=== PATIENT | male | born 1995 | race Two or more races ===

== ENCOUNTER 2016-07-24 14:41 | Emergency (ER) | payer OTHER ==
--- NOTE | 2016-07-24 14:54 | CPEKG ---
Heart Rate: 134 RR Interval: 448 P-R Interval: 148 QRSD Interval: 110 QT Interval: 288 QTC Interval: 430 P [place]: 77 QRS [place]: 57 T Wave [place]: 72 EKG Severity - ABNORMAL ECG - EKG Impression: SINUS TACHYCARDIA EKG Impression: ATRIAL PREMATURE COMPLEX EKG Impression: INCOMPLETE RIGHT BUNDLE BRANCH BLOCK EKG Impression: INFERIOR Q WAVES, PROBABLY NORMAL VARIATION Electronically Signed By: Pta Kiser 24-Jul-2016 16:36:22
[2016-07-24] MEDS ORDERED: NS 1,000 ML IV ONE ×3 (15:07→15:15)
[2016-07-24] MEDS ORDERED: CIPROFLOXACIN 400 MG/DEXTROSE 200 ML IV ONE (15:15)
[2016-07-24] MEDS ORDERED: HYDROmorphONE/DILAUDID 1 MG/ML SYR IVP ONE (15:15)
[2016-07-24] MEDS ORDERED: ONDANSETRON 4 MG/2 ML VIAL IVP ONE (15:15)
--- NOTE | 2016-07-24 15:20 | EDPHY ---
H & P Time Seen by Provider: 07/24/16 15:02 HPI/ROS: HPI Diarrhea, fast heart rate. 21-year-old male by private vehicle with his mother. Patient was down in [place] last week. He reports he returned on Monday. He reports Monday evening he developed watery diarrhea. He had 1 episode of vomiting, described as nonbilious and nonbloody that night. The diarrhea has continued through the week. He describes this as having multiple episodes of watery diarrhea. No bloody or melenic stool. He has taken Imodium twice which helps a bit but the diarrhea then returns. He went to his primary care physician's office to be evaluated was told to come to the emergency department because of his elevated heart rate. He has had no abdominal pain. No further nausea or vomiting. ROS: Constitutional: No fever, no chills. No weakness. Eyes: No discharge. No changes in vision. ENT: No sore throat. No nasal congestion or rhinorrhea. Respiratory: No cough. No shortness of breath. Cardiac: No chest pain, no palpitations. Gastrointestinal: As above, no vomiting. Genitourinary: No hematuria. No dysuria or increased frequency with urination. Musculoskeletal: No back pain. No neck pain. No myalgias or arthralgias. Skin: No rashes. Neurological: No headache. No focal weakness or altered sensation. Past medical history: No significant past medical history. No prescription medications. No allergies to medications. Social history: Nonsmoker. Drinks alcohol occasionally. Denies IV drugs or street drugs. He is here with his mother. Physical Exam: General Appearance: Alert, no distress. Thin, marfanoid in appearance. This patient is responding to questions appropriately and in full sentences. This patient appears well-hydrated and well-nourished. Eyes: Pupils equal and round no pallor or injection. No lid edema, erythema or injection. ENT, Mouth: Mucous membranes are dry. The pharyngeal tissues are unremarkable. No edema or swelling. No asymmetry suggestive of abscess. No erythema or exudates. Respiratory: There are no retractions, lungs are clear to auscultation with good air movement bilaterally. No tachypnea. Cardiovascular: Regular rate and rhythm. Tachycardia. No murmur appreciated. Gastrointestinal: Abdomen is soft and nontender, no masses, bowel sounds normal. No focal tenderness at McBurney's point. No Hernandez sign. Neurological: Motor sensory function is grossly intact. Cranial nerves are normal. Gait is normal. Skin: Warm and dry, no rashes. Musculoskeletal: Neck is supple and nontender. No CVA tenderness on palpation. Extremities are symmetrical. All joints range without pain or impingement. Psychiatric: No agitation. No depression. Database: EKG: EKG time is 2:53 p.m.; EKG shows a narrow complex sinus tachycardia with a ventricular rate of 134. Incomplete right bundle branch block noted. The OR, QT intervals are within normal limits. There are no ST-T wave changes indicative of ischemic or injury pattern. No evidence of right heart strain. Interpreted by me. Imaging: Chest x-ray AP portable; the cardiac mediastinal silhouette is unremarkable. No evidence of infiltrate or pneumothorax. No acute cardiopulmonary disease process noted. Interpreted by me. Procedures: Emergency department course: IV placed. He was placed on a monitor. EKG was performed and reviewed by myself. Vital signs were reviewed. Patient is afebrile. Patient started on IV normal saline with 2-3 L to be given over the next 2-3 hours. He was given 4 mg of IV Zofran for mild nausea and 0.25 mg of IV hydromorphone to help slow his diarrhea. Given his history of recent travel to [place] in classic presentation of traveler's diarrhea he will be given 400 mg of IV ciprofloxacin as well. Plan is to reassess after IV fluid hydration. Rate control may be considered at that time of tachycardia is not resolving. 4:05 p.m., patient re-evaluated. Resting comfortably at this time. Feeling much better. He has had about 1 and half to 2 L of fluid. Heart rate is coming down. 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 5:00 p.m., patient re-evaluated. No diarrhea in the emergency department. Tachycardia has resolved. 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 Patient feels comfortable going home. I feel he is safe for discharge. I discussed oral hydration with him. He will be prescribed Zofran to be taken as needed for nausea. I will also prescribe him 2 days of additional ciprofloxacin coverage. Follow up with his primary care physician was discussed with him and his mother. All of their questions were answered. He was discharged in good condition. Differential Diagnosis: The differential diagnosis on this patient includes but is not limited to traveler's diarrhea, dehydration. Entero invasive etiology of diarrhea, medication reaction, SVT, atrial flutter, pulmonary embolism unlikely. This represents a partial list of diagnoses considered. These considerations are based on history, physical exam, past history, reassessment and diagnostic testing. Smoking Status: Never smoked Constitutional: Initial Vital Signs Temperature (C) 36.5 C 07/24/16 14:45 Heart Rate 135 H 07/24/16 14:45 Respiratory Rate 20 07/24/16 14:45 Blood Pressure 130/74 H 07/24/16 14:45 O2 Sat (%) 100 07/24/16 14:45 O2 Delivery Mode Room Air Allergies/Adverse Reactions: No Known Allergies Allergy (Unverified 07/24/16 15:05) Home Medications: Medication Instructions Recorded Ciprofloxacin [Cipro] 500 mg PO BID #4 tab 07/24/16 Ondansetron Odt [Zofran Odt 4 mg 4 mg PO Q4PRN PRN #10 tab 07/24/16 (*)] Medical Decision Making - Diagnostics Imaging Results: Imaging Impressions Chest X-Ray 07/24/16 15:07 Impression: Normal PA chest. No acute process. - Data Points Laboratory Results: Laboratory Results 07/24/16 14:54 07/24/16 14:54 07/24/16 07/24/16 14:54 14:54 WBC 9.59 10^3/uL H 10^3/uL (3.80-9.50) RBC 5.80 10^6/uL 10^6/uL (4.40-6.38) Hgb 17.7 g/dL H g/dL (13.7-17.5) Hct 48.9 % % (40.0-51.0) MCV 84.3 fL fL (81.5-99.8) MCH 30.5 pg pg (27.9-34.1) MCHC 36.2 g/dL g/dL (32.4-36.7) RDW 11.9 % % (11.5-15.2) Plt Count 354 10^3/uL 10^3/uL (150-400) MPV 10.2 fL fL (8.7-11.7) Neut % (Auto) 56.3 % % (39.3-74.2) Lymph % (Auto) 33.4 % % (15.0-45.0) [place] % (Auto) 7.4 % % (4.5-13.0) Eos % (Auto) 2.0 % % (0.6-7.6) Baso % (Auto) 0.7 % % (0.3-1.7) Nucleat RBC Rel Count 0.0 % % (0.0-0.2) Absolute Neuts (auto) 5.40 10^3/uL 10^3/uL (1.70-6.50) Absolute Lymphs (auto) 3.20 10^3/uL H 10^3/uL (1.00-3.00) Absolute Monos (auto) 0.71 10^3/uL 10^3/uL (0.30-0.80) Absolute Eos (auto) 0.19 10^3/uL 10^3/uL (0.03-0.40) Absolute Basos (auto) 0.07 10^3/uL 10^3/uL (0.02-0.10) Absolute Nucleated RBC 0.00 10^3/uL 10^3/uL (0-0.01) Immature Gran % 0.2 % % (0.0-1.1) Immature Gran # 0.02 10^3/uL 10^3/uL (0.00-0.10) Sodium 144 mEq/L mEq/L (134-144) Potassium 4.2 mEq/L mEq/L (3.5-5.2) Chloride 102 mEq/L mEq/L (97-110) Carbon Dioxide 21 mEq/l L mEq/l (22-31) Anion Gap 21 mEq/L H mEq/L (8-16) BUN 9 mg/dL mg/dL (7-23) Creatinine 0.8 mg/dL mg/dL (0.7-1.3) Estimated GFR > 60 Glucose 119 mg/dL H mg/dL (70-100) Calcium 10.0 mg/dL mg/dL (8.5-10.4) Total Bilirubin 1.3 mg/dL mg/dL (0.1-1.4) Conjugated Bilirubin 0.4 mg/dL mg/dL (0.0-0.5) Unconjugated Bilirubin 0.9 mg/dL mg/dL (0.0-1.1) AST 34 IU/L IU/L (17-59) ALT 43 IU/L IU/L (21-72) Alkaline Phosphatase 92 IU/L IU/L (38-126) Total Protein 8.7 g/dL H g/dL (6.3-8.2) Albumin 5.1 g/dL H g/dL (3.5-5.0) Lipase 77.0 IU/L IU/L (23-300) Medications Given: Discontinued Medications Hydromorphone HCl (Dilaudid) 0.25 mg IVP EDNOW ONE Stop: 07/24/16 15:16 Last Admin: 07/24/16 15:40 Dose: 0.25 mg Sodium Chloride (Ns) 1,000 mls @ 0 mls/hr IV ONCE ONE PRN Reason: Wide Open Stop: 07/24/16 15:08 Last Admin: 07/24/16 14:54 Dose: 1,000 mls Sodium Chloride (Ns) 1,000 mls @ 0 mls/hr IV ONCE ONE PRN Reason: Wide Open Stop: 07/24/16 15:09 Last Admin: 07/24/16 15:15 Dose: 1,000 mls Ciprofloxacin/Dextrose (Cipro 400 Mg (Premix)) 200 mls @ 200 mls/hr IV EDNOW ONE PRN Reason: Protocol Stop: 07/24/16 16:14 Last Admin: 07/24/16 15:40 Dose: 200 mls Sodium Chloride (Ns) 1,000 mls @ 0 mls/hr IV ONCE ONE PRN Reason: Wide Open Stop: 07/24/16 15:16 Last Admin: 07/24/16 16:05 Dose: 1,000 mls Metoprolol Tartrate (Lopressor Injection) 5 mg IVP Q5M DON Stop: 07/24/16 15:26 Last Admin: 07/24/16 16:05 Dose: Not Given Ondansetron HCl (Zofran) 4 mg IVP EDNOW ONE Stop: 07/24/16 15:16 Last Admin: 07/24/16 15:40 Dose: 4 mg Departure - Departure Disposition: Home, Routine, Self-Care Clinical Impression: Diarrhea, Tachycardia, Dehydration Condition: Good Instructions: Traveler's Diarrhea (ED), Dehydration (ED) Additional Instructions: Read and follow provided instructions. It is very important you keep well hydrated with oral fluids. Gatorade mixed with water in a 1-1 dilution is a good solution. You should be urinating frequently in urine should be on the clear side. Follow-up with your primary care physician in 1-2 days for re-evaluation as needed. Take medication as prescribed. Return to the emergency department for fever, bloody stools, vomiting and inability to keep fluids down despite medications or other serious concerns. Referrals: Patient,NotPresent [Primary Care Provider] - As per Instructions Prescriptions: Ciprofloxacin [Cipro] 500 mg PO BID #4 tab Ondansetron Odt [Zofran Odt 4 mg (*)] 4 mg PO Q4PRN PRN #10 tab PRN Reason: For Nausea & Vomiting
[2016-07-24 15:24] LABS: % IMMATURE GRANULYOCYTES 0.2 % (0.0-1.1); ABSOLUTE IMMATURE GRANULOCYTES 0.02 10^3/uL (0.00-0.10); ADD DIFF? NO; ADD MORPH? NO; ADD SCAN? NO; ATYPICAL LYMPHOCYTE FLAG 90 (0-99); FRAGMENT RBC FLAG 0 (0-99); HEMATOCRIT 48.9 % (40.0-51.0); HEMOGLOBIN 17.7 g/dL (13.7-17.5); LEFT SHIFT FLG 0 (0-99); LIPEMIA HEMOLYSIS FLAG 90 (0-99); MEAN CELL HEMOGLOBIN 30.5 pg (27.9-34.1); MEAN CELL HEMOGLOBIN CONCENTR. 36.2 g/dL (32.4-36.7); MEAN CELL VOLUME 84.3 fL (81.5-99.8); MEAN PLATELET VOLUME 10.2 fL (8.7-11.7); PLATELET CLUMPS FLAG 20 (0-99); PLATELET COUNT 354 10^3/uL (150-400); RED CELL DISTRIBUTION WIDTH 11.9 % (11.5-15.2)
[2016-07-24 15:29] LABS: ALANINE AMINOTRANSFERASE 43 IU/L (21-72); ALBUMIN 5.1 g/dL (3.5-5.0); ALKALINE PHOSPHATASE 92 IU/L (38-126); ANION GAP 21 mEq/L (8-16); ASPARTATE AMINOTRANSFERASE 34 IU/L (17-59); BILIRUBIN,TOTAL 1.3 mg/dL (0.1-1.4); BILIRUBIN-CONJUGATED 0.4 mg/dL (0.0-0.5); BILIRUBIN-UNCONJUGATED 0.9 mg/dL (0.0-1.1); CARBON DIOXIDE 21 mEq/l (22-31); CHLORIDE 102 mEq/L (97-110); CREATININE 0.8 mg/dL (0.7-1.3); GLOMERULAR FILTRATION RATE > 60; GLUCOSE 119 mg/dL (70-100); POTASSIUM 4.2 mEq/L (3.5-5.2); SODIUM 144 mEq/L (134-144); TOTAL PROTEIN 8.7 g/dL (6.3-8.2)
[2016-07-24] MEDS: METOPROLOL TARTRATE 5 MG/5 ML INJ IVP SCH ×2 (16:04→16:05)
[2016-07-24 16:08] VITALS: RESP 16; O2SAT 96
[2016-07-24 16:53] VITALS: BP 122/80; PULSE 99; TEMP 98.2
== END 2016-07-24 16:59 | disposition home or self-care (01) ==
LOC: CED 14:41
DX: E86.0 Dehydration (principal); R00.0 Tachycardia, unspecified
CPT/HCPCS: 71010-PO; 80048-PO; 80076-PO; 83690-PO; 85025-PO; 96365; J0744; J1170; J2405